=== PATIENT | female | born 1970 | race Caucasian/White ===

== ENCOUNTER 2018-02-22 07:00 | Day surgery (SDC) | payer BC ==
--- NOTE | 2018-02-21 15:15 | PREOP HP ---
DATE OF SERVICE: 02/22/2018 Diony Cabrera dictating for Dr. Blanco Chaparro. Date of surgery will be 02/22/2018. HISTORY OF PRESENT ILLNESS: The patient is a pleasant 47-year-old who has had significant difficulty with low back pain and pain, which radiates in her right buttock and posterior thigh. She notes there is pain in the calf that radiates into her right foot as well. She notes numbness and tingling in the posterior leg and the plantar surface of her right foot. The problem has been present for years. In the past, she has had physical therapy for this problem. The problem subsided, but over the last 6 weeks, she has developed extremely severe pain in her buttock and posterior thigh, which limits all of her activities. She says she is only able to walk a few feet without sitting. She finds that she leans forward any time she stands. She says sitting does give her some relief. She rates her pain as a 10/10 when she stands and walks. Currently, she is taking tramadol, meloxicam and limiting all of her activities. In addition, physical therapy in the past, she had decompressive treatment. There is no problem on the left side. Weakness is not a problem for her. The principal issue is severe pain and numbness. There are no bowel or bladder issues. PAST SURGICAL HISTORY: Breast biopsy. FAMILY HISTORY: Cancer and hypertension. SOCIAL HISTORY: Employed as a speech therapist. . Exercises monthly with strength training. Denies substance abuse. Denies tobacco use. Drinks alcohol 1-2 times per month. Drinks tea daily. ALLERGIES: No known drug allergies. CURRENT MEDICATIONS: Tramadol, meloxicam, lidocaine. REVIEW OF SYSTEMS: A 12-point review of systems was obtained and is noncontributory except for that mentioned above. PHYSICAL EXAMINATION: NEUROSURGERY EXAMINATION: GENERAL APPEARANCE: Alert, pleasant, in moderate distress with back and right leg pain. HEENT: Head: Normocephalic and atraumatic. SKIN: Warm and dry. MUSCULOSKELETAL: Lumbar paraspinal muscle bulk is normal, restricted range of motion of lumbar spine. Moderate tenderness of lower lumbar spine into the right side of midline with palpation. EXTREMITIES: Normal range of motion of the lower extremities bilaterally except for limitations of straight leg raising on the right. EXTREMITIES: No clubbing, cyanosis or edema. NEUROLOGIC: Alert and oriented x 3, normal recent and remote memory. Strength 5/5 in bilateral lower extremities. Sensory is intact to light touch in bilateral lower extremities except for decrease in the posterior right leg and plantar surface of the right foot, reflexes were present and symmetric in the lower extremities bilaterally except for absent right ankle jerk, left ankle jerk 2+ positive straight leg raising on the right with back and buttock, posterior thigh pain relieved by Lasegue's maneuver, negative straight leg raising on the left, abnormal slow forward stooped gait favoring the right leg. IMAGING: Reviewed. I reviewed lumbar MRI scan. On that study, the principal abnormalities are at L5-S1 where there is a large right paracentral and lateral recess disk protrusion measuring about 1 cm in diameter and markedly impinging and deviating the right S1 nerve root. Also, at L4-L5, there is mild left lateral recess narrowing primarily to left paramedian disk bulging. ASSESSMENT: Intervertebral disk disorders with radiculopathy, lumbar fusion. PLAN: Although in the past severe radiculopathy from a large right L5-S1 disk protrusion with marked nerve root compression. She had difficulties intermittently for years, but this is by far the most severe and is associated with grave disability. My feeling at this point is that she can consider lumbar microsurgery for the problem. I did discuss with her surgery and the risks. I spoke about the possibility of recurrence. I explained the technique of the operation in detail. She understands and elected to go ahead. We will make the arrangements. BLANCO CHAPARRO MD DR: MARCOS/stephanie JOB#: [id number] / [id number]
[~2018-02-22] VITALS: Ht 167.6 cm; Wt 64.0 kg
[~2018-02-22 07:00] MED LIST: BACITRACIN 50,000 UNIT in IV NORMAL SALINE 1000ML BAG 1,000 ML IRR ONE; DIAZ5TAB4 PO; HYDROmorphone 2 MG/ML VIAL IV PRN; IV RINGERS,LACTATED 1000ML 1,000 ML IV SCH; LIDOCAINE 1% PF 2 ML VIAL. ID PRN; MELO15TA23 PO; MORPHINE SULFATE 2 MG/ML VIAL. IV PRN; ONDANSETRON PF 4 MG/2 ML VIAL. IV PRN; OXYC1TAB15 PO; PROCHLORPERAZINE 10 MG/2 ML VIAL. IV PRN; VANCOMYCIN 1GM IVPB FOR OMNI 250 ML IV PRN; fentaNYL PF VIAL 100 MCG/2 ML VIAL IV PRN
[2018-02-22] MEDS ORDERED: THROMBIN TOPICAL 20,000 UNIT SPRAY.SYRN KIT TP ONE (07:14)
[2018-02-22] MEDS ORDERED: KETOROLAC 60 MG/2 ML INJ FOR OR. ONE (07:14)
[2018-02-22] MEDS ORDERED: BUPIVAC MPF-EPI 0.5%-1:200000 30 ML VIAL. ONE (07:14)
[2018-02-22] MEDS ORDERED: GELATIN SPONGE SIZE 100. ONE ×2 (07:14)
[2018-02-22 07:33] LABS: BASO % 0 % (0-3); EOS % 1 % (0-3); HEMATOCRIT 40.4 % (36.0-47.0); LYMPH # 1.1 x10^3/uL (1.0-4.8); LYMPH % 29 % (24-48); MEAN CORPUSCULAR HEMOGLOBIN 30 pg (25-35); MEAN CORPUSCULAR HGB CONC 35 g/dL (31-37); MEAN CORPUSCULAR VOLUME 88 fL (79-100); MONO # 0.3 x10^3/uL (0.0-1.1); MONO % 9 % (0-9); NEUT # 2.3 x10^3uL (1.8-7.7); NEUT % 61 % (31-73); PLATELET COUNT 226 x10^3/uL (140-400); RED BLOOD COUNT 4.59 x10^6/uL (3.50-5.40); RED CELL DISTRIBUTION WIDTH 13.5 % (11.5-14.5); WHITE BLOOD COUNT 3.8 x10^3/uL (4.0-11.0)
[2018-02-22 07:46] LABS: U PREG PATIENT NEGATIVE (NEG)
[2018-02-22 07:46] LABS: CALCIUM 9.5 mg/dL (8.5-10.1); CREATININE 0.8 mg/dL (0.6-1.0); GFR 77.6; POTASSIUM 4.3 mmol/L (3.5-5.1)
[2018-02-22 08:00] LABS: ALBUMIN 3.8 g/dL (3.4-5.0); ALBUMIN/GLOBULIN RATIO 1.1 (1.0-1.7); TOTAL BILIRUBIN 0.5 mg/dL (0.2-1.0); TOTAL PROTEIN 7.3 g/dL (6.4-8.2)
[2018-02-22] MEDS ORDERED: ONDANSETRON PF 4 MG/2 ML VIAL. ONE (08:19)
[2018-02-22] MEDS ORDERED: DEXAMETHASONE SOD PHOS 20 MG/5 ML VIAL. ONE (08:19)
[2018-02-22] MEDS ORDERED: PHENYLEPHRINE in 0.9% NACL PF 1 MG/10 ML SYRINGE. IV ONE (08:19)
[2018-02-22] MEDS ORDERED: ePHEDrine PF IN SALINE 50 MG/5 ML DISP.SYRIN IV ONE (08:19)
[2018-02-22] MEDS ORDERED: REMIFENTANIL 2 MG VIAL. IV ONE (08:20)
[2018-02-22] MEDS ORDERED: fentaNYL PF VIAL 100 MCG/2 ML VIAL ONE ×2 (08:20→10:52)
[2018-02-22] MEDS ORDERED: MIDAZOLAM HCL/PF 2 MG/2 ML VIAL. ONE (08:20)
[2018-02-22] MEDS ORDERED: PROPOFOL 50 ML IV ONE (08:20)
[2018-02-22] MEDS ORDERED: LIDOCAINE 2% PF Vial for OR 5 ML VIAL. ONE (08:20)
[2018-02-22] MEDS ORDERED: PROPOFOL 20 ML IV ONE (08:20)
[2018-02-22] MEDS ORDERED: ROCURONIUM 50 MG/5 ML VIAL. ONE (08:22)
[2018-02-22] MEDS ORDERED: FAMOTIDINE 20 MG/2 ML VIAL ONE (09:07)
[2018-02-22] MEDS ORDERED: NEOSTIGMINE METHYLSULFATE 5 MG/5 ML SYRINGE. ONE (09:08)
[2018-02-22] MEDS ORDERED: GLYCOPYRROLATE 1 MG/5 ML VIAL. ONE (09:08)
--- NOTE | 2018-02-22 09:51 | DISCH ---
DISCHARGE INSTRUCTIONS Condition on Discharge Condition on Discharge: Stable Activity After Discharge Activity Instructions for Disc: Activity as tolerated, Avoid exertion Other activity instructions: no driving for a week Bathing Instructions: Shower-keep dressing dry Lifting Instructions after Dis: No heavy lifting, No pulling or pushing, Do not lift >10 pounds Diet after Discharge Additional Diet Restrictions: resume home diet Wound Incision Care Wound/Incision Care: Ice to area for comfort Other wound/incision instructi: may remove dressing in 48 hours if dry then may shower, no soaking Contacting the after DC Call your doctor for: Concerns you may have Follow-Up Follow up with: Dr. Chaparro's nurse in 2 weeks [phone] DARYA CHAPARRO MD Feb 22, 2018 09:51
[2018-02-22] MEDS ORDERED: DOCU-109 PO (09:53)
[2018-02-22] MEDS ORDERED: DESFLURANE 61 TO 120 MINUTES IH ONE (10:39)
[2018-02-22] MEDS ORDERED: OXYC1TAB15 PO (11:17)
--- NOTE | 2018-02-22 11:20 | OP ---
DATE OF SURGERY: 02/22/2018 PREOPERATIVE DIAGNOSES: Herniated lumbar disc, L5-S1 right with severe right lumbar radiculopathy. POSTOPERATIVE DIAGNOSES: Herniated lumbar disc, L5-S1 right with severe right lumbar radiculopathy. OPERATION PERFORMED: Hemilaminotomy and microdiscectomy L5-S1, right. The operation was done with EMG monitoring, fluoroscopy, microscopic dissection. SURGEON: Blanco Chaparro M.D. HERB DIGGER: DIGNA Gonzalez, assisted with the surgery. She assisted with the microdecompression as well as the closure. OPERATIVE INDICATIONS: The patient is a very pleasant 47-year-old woman who developed significant back and right leg pain which failed conservative measures including physical therapy and decompression therapy. On imaging studies, there was a very large focal disc herniation at L5-S1 on the right with nerve root compression, and I recommended lumbar microsurgery. I spoke about the surgery and the risks, the technique and expected postoperative course. She wished to go ahead. DESCRIPTION OF PROCEDURE: Following general endotracheal anesthesia, the patient was positioned prone on the Bhargav frame. Lumbar region was prepped and draped in standard fashion. MINDI hose and AV impulse boots were applied for DVT prophylaxis. The microscope was draped. Fluoroscopy was draped and brought in the field. Monitoring was established, including somatosensory evoked potentials as well as EMG monitoring. Vancomycin 1 gram was given prior to the surgery. An incision was made directly over the L5-S1 interspace. I dissected down through skin and subcutaneous tissue and created a small exposure placing a self-retaining retractor. I brought in the microscope, burred down a generous hemilaminotomy confirming my position fluoroscopically, peeled away thickened ligamentum flavum and exposed the dura and the exiting S1 root. The root was markedly swollen and pushed posterolaterally, and I gently developed a plane beneath the root with first the micro blunt hook, followed by the micro nerve root retractor. There was a large herniated fragment, which was partly beneath and partly exterior to the ligament, and I grasped and peeled the multiple disc fragments away, which markedly decompressed the root. I then entered into the disc space and performed a generous discectomy. I then further explored and worked and removed further disc fragments and decompressed the entire region. At the level of the disc herniation, there was considerable scarring and thickening of the ligament and annulus, and I worked to trim some of this material away and fully decompressed the entire region. I explored carefully, the root was no longer compressed. It was very easy to retract. I did irrigate copiously. Hemostasis was excellent throughout, although I did bipolar a few small epidural veins and did use a small amount of bone wax to ensure perfect hemostasis. At this point, the nerve root was well decompressed. On exploration, there were no further disc fragments. I removed the retractor, obtained hemostasis in the muscle, irrigated copiously, closed the wound in layers with absorbable suture. The skin closed with 4-0 subcuticular stitch. The operation went very well, and I was quite pleased with the surgery. BLANCO CHAPARRO MD DR: MARCOS/stephanie JOB#: [id number] / [id number] AURA
[2018-02-22] MEDS ORDERED: oxyCODONE/APAP 5/325 1 TAB TABLET PO ONE ×2 (11:30)
[2018-02-22 12:15] VITALS: BP 109/63
--- NOTE | 2018-02-24 12:08 | PATHOLOGY ---
[facility] Accession Number: [id number] . 01 Material submitted: . LUMBAR DISC AND DECOMPRESSION . 01 Clinical history: . Lumbar herniated disc and radiculopathy . 02 Diagnosis: "Lumbar disc and decompression, removal": - Fragments of fibrocartilage with focal degenerative changes. - Fragments of unremarkable bone and skeletal muscle. . (SKM:mml; 02/23/2018) QLM/02/23/2018 . 02 Electronically signed: . Chris Vizcarra MD, Pathologist NPI- [id number] . 01 Gross description: . Received in formalin labeled "Arabella Galdamez, lumbar disc and decompression," are several pieces of glistening, fibrous tissue measuring 4.1 x 1.6 x 1.6 cm in aggregate dimensions, containing small fragments of possible bone. The tissue submitted representatively in cassette A1, following decalcification. (TSD; 02/22/2018) TOB/TOB . 02 Pathologist provided ICD-10: M51.36 . 02 CPT . 089403, [id number] Specimen Comment: A courtesy copy of this report has been sent to Specimen Comment: [phone], . Specimen Comment: Report sent to and Performed at: 01 [facility] [address], [place] [id number] MD Umer Blandon MD Phone: [phone] Performed at: 02 [facility] [address] [place], [place] [id number] MD Sanjay Kimball MD Phone: [phone]
== END 2018-02-22 12:52 | disposition home or self-care (01) ==
LOC: SURG 07:00
PROVIDERS: ATTEND Neurological Surgery
DX: M51.16 Intervertebral disc disorders with radiculopathy, lumbar region (principal); M48.061 Spinal stenosis, lumbar region without neurogenic claudication; Z72.89 Other problems related to lifestyle; Z82.49 Family history of ischemic heart disease and other diseases of the circulatory system; Z98.890 Other specified postprocedural states; Z79.899 Other long term (current) drug therapy
CPT/HCPCS: 36415; 63030; 80053; 81025; 85025; 87641; 88304; 88311; 97162; 97530; A7015; G8978; G8979; G8980; J0780; J1100; J1885; J2001; J2250; J2370; J2405; J2704; J2710; J3010; J3370; J3490; J7030; J7120; 76000